=== PATIENT | female | born 1970 | race Caucasian/White ===

== ENCOUNTER → 2017-10-24 | Outpatient (CLI) | payer OTHER ==
[2017-10-24 09:43] LABS: BASO % 0.1 %; BASO ABS # 0.01 K/uL (0-0.2); EOS % 1.4 %; HEMATOCRIT 42.5 % (37-47); HEMOGLOBIN 14.5 g/dL (12.0-16.0); IG# 0.04 K/uL (0.00-0.02); LYMPH ABS # 2.07 K/uL (1.2-3.4); MEAN CELL VOLUME 87.8 fL (80-100); MEAN CORPUSCULAR HGB CONC 34.1 g/dl (32-36); MEAN PLATELET VOLUME 10.7 fL (7.4-10.4); MONO % 5.6 %; NEUT % 63.3 %; NEUT ABS # 4.52 K/uL (1.4-6.5); PLATELET COUNT 201 K/uL (130-400); RED CELL DISTRIBUTION WIDTH CV 13.2 % (11.5-14.5); RED CELL DISTRIBUTION WIDTH SD 42.7 fL (36.4-46.3); WHITE BLOOD COUNT 7.14 K/uL (4.8-10.8)
[2017-10-24 09:51] LABS: HEMOGLOBIN A1C 6.1 % (4.5-5.6)
[2017-10-24 09:57] LABS: ALBUMIN 3.9 gm/dl (3.4-5.0); ALKALINE PHOSPHATASE 99 U/L (45-117); ALT/SGPT 29 U/L (12-78); AST/SGOT 20 U/L (15-37); BLOOD UREA NITROGEN 7 mg/dl (7-18); CALCIUM 8.8 mg/dl (8.5-10.1); CARBON DIOXIDE 27 mmol/L (21-32); CHOLESTEROL 228 mg/dl (0-200); CREATININE 0.59 mg/dl (0.60-1.20); GLUCOSE 123 mg/dl (70-99); LDL CHOLESTEROL CALCULATED 155 mg/dl; SODIUM 138 mmol/L (136-145); TOTAL PROTEIN 7.3 gm/dl (6.4-8.2)
== END | disposition home or self-care (01) ==
LOC: C.LAB1850 07:10
PROVIDERS: ATTEND Nurse Practitioner Adult Health
DX: E11.65 Type 2 diabetes mellitus with hyperglycemia (principal); D64.9 Anemia, unspecified; Z78.9 Other specified health status